=== PATIENT | male | born 1990 | race Caucasian/White ===

== ENCOUNTER 2018-08-17 17:06 | Emergency (ER) | payer MEDICAID | END 2018-08-17 19:29 | disposition home or self-care (01) | LOC: FTE 17:06 | DX: S05.92XA Unspecified injury of left eye and orbit, initial encounter (principal); X58.XXXA Exposure to other specified factors, initial encounter; Y92.9 Unspecified place or not applicable | CPT/HCPCS: 99282; Z7502 ==